=== PATIENT | female | born 1960 | race American Indian/Alaskan Native ===

== ENCOUNTER 2019-04-03 08:07 | Observation (INO) | payer MEDICAID ==
[2019-03-29 10:13] LABS: BUN/Creatinine Ratio 26; Blood Urea Nitrogen 18 mg/dL (7-17); Calcium 10.5 mg/dL (8.4-10.2); Hemolysis Index 13
--- NOTE | 2019-03-29 10:30 | Anesthesia Consultation ---
Anesthesia Consult and Med Hx Date of service: 03/29/19 - Airway Anesthetic Teeth Evaluation: Dentures ROM Head & Neck: Adequate Mental/Hyoid Distance: Adequate Mallampati Class: Class II Intubation Access Assessment: Probably Good - Pulmonary Exam CTA: Yes - Cardiac Exam Cardiac Exam: RRR - Pre-Operative Health Status ASA Pre-Surgery Classification: ASA2 Proposed Anesthetic Plan: General Nerve Block: TAP Block - Pulmonary Hx Smoking: No Hx Respiratory Symptoms: No Hx Sleep Apnea: No - Cardiovascular System Hx Hypertension: Yes (instructed to take amlodipine DOS) Hx Heart Attack/AMI: No Hx Percutaneous Transluminal Coronary Angioplasty (PTCA): No Hx Cardia Arrhythmia: No - Central Nervous System CVA: No Hx Psychiatric Problems: No - Gastrointestinal Hx Gastroesophageal Reflux Disease: Yes (poorly controlled) - Endocrine Hx Renal Disease: No Hx Liver Disease: No Hx Insulin Dependent Diabetes: No Hx Non-Insulin Dependent Diabetes: No Hx Thyroid Disease: No - Other Systems Hx Alcohol Use: Yes (Occas beer) Hx Obesity: No - Additional Comments Anesthesia Medical History Comments: No hx anesthetic complications. Consented for TAP block for postop analgesia.
[2019-03-29 10:45] LABS: Basophils % (Auto) 0.6 % (0.0-1.8); Eosinophils % (Auto) 0.9 % (0.0-4.3); Hematocrit 40.1 % (30.3-42.9); Hemoglobin 13.3 gm/dl (10.1-14.3); Lymphocytes # (Auto) 2.3 K/mm3 (1.2-5.4); Lymphocytes % (Auto) 45.1 % (13.4-35.0); Mean Corpuscular HGB Conc 33 % (30-34); Mean Corpuscular Volume 87 fl (79-97); Monocytes # (Auto) 0.4 K/mm3 (0.0-0.8); Monocytes % (Auto) 8.7 % (0.0-7.3); Platelet Count 350 K/mm3 (140-440); Red Blood Count 4.63 M/mm3 (3.65-5.03); Red Cell Distribution Width 14.5 % (13.2-15.2)
--- NOTE | 2019-04-03 06:59 | History and Physical Report ---
History of Present Illness Date of examination: 04/03/19 Date of admission: 04/03/2019 Chief complaint: DUB History of present illness: 58-year-old with a history of dysfunctional uterine bleeding and multiple leiomyomas. The patient reports significant pain and discomfort with her menses and also reports that her menses is heavy and she reports passage of clots. Pelvic ultrasound demonstrated an enlarged fibroid uterus with the largest leiomyoma measuring 5.8 cm and the total length of the uterus 12.4 cm. Various treatments options have been discussed with the patient which she declines and has elected to proceed with definitive surgical management. Past History Past Medical History: hypertension Past Surgical History: no surgical history [employer] History: fibroids Social history: single, smoking - Obstetrical History : 6 Para: 4 Hx # Term Pregnancies: 4 Number of Pregnancies: 0 Spontaneous Abortions: 0 Induced : 2 Number of Living Children: 4 Medications and Allergies Allergies Allergy/AdvReac Type Severity Reaction Status Date / Time No Known Allergies Allergy Unverified 03/27/19 16:08 Home Medications Medication Instructions Recorded Confirmed Last Taken Type amLODIPine [Norvasc] 5 mg PO DAILY 08/04/13 06/17/16 06/17/16 History Aspirin [Aspirin TAB] 325 mg PO QDAY 06/17/16 06/17/16 06/17/16 History Famotidine [Pepcid] 20 mg PO BID 06/17/16 06/17/16 06/17/16 History Losartan [Cozaar] 60 mg PO QDAY 06/17/16 06/17/16 06/17/16 History Active Meds: Active Medications Celecoxib (Celebrex) 200 mg PO PREOP NR Stop: 04/03/19 23:59 Fentanyl (Sublimaze) 100 mcg IV ONCE PRN PRN Reason: sedation for nerve block Gabapentin (Neurontin) 300 mg PO PREOP NR Stop: 04/03/19 23:59 Lactated Ringer's (Lactated Ringers) 1,000 mls @ 100 mls/hr IV DIRECT TOM Midazolam HCl (Versed) 2 mg IV PREOP NR Stop: 04/03/19 23:59 Review of Systems All systems: negative Genitourinary: vaginal bleeding, pelvic pain - Vital Signs Vital signs: Vital Signs Temp Pulse Resp BP Pulse Ox 97.5 F L 66 18 120/84 98 03/29/19 09:20 03/29/19 09:20 03/29/19 09:20 03/29/19 09:20 03/29/19 09:20 Temp Pulse Resp BP Pulse Ox 97.5 F L 66 18 120/84 98 03/29/19 09:20 03/29/19 09:20 03/29/19 09:20 03/29/19 09:20 03/29/19 09:20 - Physical Exam Breasts: Positive: deferred Cardiovascular: Regular rate Lungs: Positive: Clear to auscultation Abdomen: Positive: normal appearance Results Result Diagrams: 03/29/19 09:30 03/29/19 09:30 All other labs normal. Assessment and Plan - Patient Problems (1) Leiomyoma Status: Acute Plan to address problem: Patient is scheduled for a robotic hysterectomy and bilateral salpingo- oophorectomy (2) Dysfunctional uterine bleeding Status: Acute (3) Personal history of dysmenorrhea Status: Acute
[~2019-04-03 08:07] MED LIST: ANCEF/STERILE WATER 2 GM/20 ML 2 GM/20 ML SYRINGE IV NR; LACTATED RINGERS 1,000 ML IV SCH; NEURONTIN PO NR; SUBLIMAZE IV PRN; VERSED IV NR
[2019-04-03] MEDS ORDERED: XYLOCAINE 1% 20 mL ONE (09:08)
[2019-04-03] MEDS ORDERED: MARCAINE-EPI 0.25%-1:200,000 INFILTRATI ONE (09:09)
[2019-04-03] MEDS ORDERED: ZEMURON IV ONE (10:03)
[2019-04-03] MEDS ORDERED: XYLOCAINE MPF 2% ONE (10:03)
[2019-04-03] MEDS ORDERED: SUBLIMAZE ONE (10:05)
[2019-04-03] MEDS ORDERED: DIPRIVAN 10 MG/ML IV ONE ×2 (10:05→12:38)
--- NOTE | 2019-04-03 10:37 | Anesthesia Day of Surgery ---
Anesthesia Day of Surgery - Day of Surgery Patient Examined: Yes Patient H&P Reviewed: Yes Patient is NPO: Yes
[2019-04-03] MEDS ORDERED: NEOSPORIN GU IR ONE ×2 (10:53→11:28)
[2019-04-03] MEDS ORDERED: ZOFRAN IV PRN (11:00)
[2019-04-03] MEDS ORDERED: NACL 0.9% IR ONE ×2 (11:28)
[2019-04-03] MEDS ORDERED: NARCAN 0.4 MG/1 ML IV PRN (12:27)
--- NOTE | 2019-04-03 12:27 | Operative Report ---
Operative Report Operative Report: Date of surgery: 04/03/2019 Preoperative diagnoses: Symptomatic uterine fibroids; dysfunctional uterine bleeding Postoperative diagnoses: Same as above Procedure: Robotic hysterectomy and bilateral salpingo-oophorectomy Surgeon: Verenice Fonseca M.D. Air Gun Operator: Neal Blackwood Anesthesia: Gen. endotracheal anesthesia Estimated blood loss: 30 mL Pathology: Uterus, cervix, bilateral tubes and ovaries, leiomyoma Indication: 58-year-old with a history of symptomatic uterine fibroids. The patient reported painful heavy menses every month and elected to undergo definitive surgical management. Procedure: The patient was taken to the operating room and given general endotracheal anesthesia without complication. She is prepped and draped in a normal sterile fashion. A bivalve speculum was placed in the patient's vagina and a single- tooth tenaculum placed on the anterior lip of the cervix. The uterus was sounded with the uterine sound. A Catch[employer]! uterine manipulator was placed in the bivalve speculum was then removed. Attention was then turned to the patient's abdomen where a 12 millimeter supra umbilical skin incision was then made. A Veress needle was placed and peritoneal entry was verified water-filled syringe. Insufflation of the peritoneal cavity was performed with CO2 gas. The 12 mm trocar was then placed under direct visualization. An additional 8 mm trocar was placed on the patient's left and right lateral side just opposite of the supraumbilical trocar. An additional 5 mm right lateral trocar was then placed as the accessory port. The Cristian Salinas device was used to close the fascia of the 12 mm incision. The patient was then placed in steep Trendelenburg. The da Niles robot was then engaged. A fenestrated forcep was placed in arm 2 and a vessel sealer was placed in arm 1. The surgeon then transferred to the surgical console. The infundibulopelvic ligament was then isolated on the right. The vessel sealer was used to coagulate the ligament which was then transected. The tube and ovary were transected from the supply. The round ligament was then coagulated and transected also. The vesicouterine peritoneum was then entered from the patient's right side. The uterine vessels were then coagulated with the vessel sealer. The vessels were then transected . Attention was then turned to the patient's left side where the infundibulopelvic ligament and mesosalpinx were again isolated coagulated and transected. The vesical p eritoneum was then entered from the left and joined in the midline. Peritoneum was reflected off of the lower uterine segment. Uterine vessels were then coagulated and then transected. The blood supply to the uterus was adequately contained, a posterior colpotomy was made. The V care ring was visualized. Posterior colpotomy was created with the monopolar scissors. The incision was continued circumferentially until anterior colpotomy was made. The cervix and uterus were amputated from the vaginal cuff. The uterus was then removed along with the tubes and ovaries bilaterally through the vagina and a warm laparotomy sponge was placed and maintain the pneumoperitoneum. The vaginal cuff was then closed in a running fashion with V lock suture. Irrigation of the pelvis was performed. Hemoblast was applied to the incision. The skin was then reapproximated with 4-0 Monocryl. The tissue was sent to pathology which included the cervix, uterus, tubes and ovaries. The patient was then successfully extubated. She was then taken to the recovery room in stable condition. All sponge laps and needle counts were correct x2.
[2019-04-03] MEDS ORDERED: TYLENOL PO PRN (12:28)
[2019-04-03] MEDS ORDERED: IBUPROFEN PO PRN (12:28)
[2019-04-03] MEDS ORDERED: AMBIEN PO PRN (12:28)
[2019-04-03] MEDS ORDERED: PERCOCET 5/325 PO PRN (12:28)
[2019-04-03] MEDS ORDERED: ROBINUL ONE (12:31)
[2019-04-03] MEDS ORDERED: ZOFRAN ONE (12:31)
[2019-04-03] MEDS ORDERED: TORADOL ONE (12:31)
[2019-04-03] MEDS ORDERED: BLOXIVERZ ONE (12:31)
[2019-04-03] MEDS ORDERED: MORPHINE PCA 30MG/30ML IV SCH (13:00)
[2019-04-03] MEDS ORDERED: DECADRON ONE (13:08)
[2019-04-03] MEDS ORDERED: DILAUDID ONE (13:19)
[2019-04-03] MEDS: DILAUDID IV PRN ×2 (13:24→13:36)
[2019-04-03] MEDS: TORADOL IV SCH ×2 (18:13→19:00)
[2019-04-03] MEDS: D5LR 1,000 ML IV SCH (18:13)
[2019-04-04] MEDS: TORADOL IV SCH ×2 (01:16→07:47)
[2019-04-04] MEDS: D5LR 1,000 ML IV SCH (01:20)
[2019-04-04 04:30] LABS: Hematocrit 35.8 % (30.3-42.9); Hemoglobin 11.7 gm/dl (10.1-14.3)
--- NOTE | 2019-04-04 08:05 | Progress Note ---
Assessment and Plan - Patient Problems (1) Leiomyoma Current Visit: No Status: Acute Plan to address problem: routine postop care (2) Dysfunctional uterine bleeding Current Visit: No Status: Acute (3) Personal history of dysmenorrhea Current Visit: No Status: Acute Subjective - Subjective Date of service: 04/04/19 Interval history: Patient states she has been out the bed. Had difficulty sleeping last night. Patient reports: appetite normal, voiding normally, pain well controlled Objective - Vital Signs Latest vital signs: Vital Signs Temp Pulse Pulse Resp BP BP Pulse Ox 04/04/19 05:21 18 04/04/19 04:52 98.2 F 66 18 119/69 98 04/04/19 04:20 18 04/04/19 02:05 18 04/04/19 00:26 98.3 F 78 18 122/72 92 04/04/19 00:00 18 04/03/19 22:15 18 04/03/19 20:25 98.9 F 86 20 130/75 96 04/03/19 19:30 78 18 04/03/19 15:49 98.8 F 74 18 139/74 99 04/03/19 14:39 97 04/03/19 14:30 98.6 F 77 16 135/83 97 04/03/19 13:40 97.4 F L 04/03/19 13:30 73 16 131/74 99 04/03/19 13:15 89 16 145/81 100 04/03/19 13:10 91 H 18 148/76 100 04/03/19 13:05 86 18 138/83 100 04/03/19 12:58 98.4 F 82 20 136/87 98 04/03/19 08:45 16 04/03/19 08:43 16 04/03/19 08:25 97.4 F L 61 16 134/76 100 04/03/19 08:20 97.4 F L 61 18 134/76 100 Intake and Output 04/03/19 04/04/19 04/04/19 22:59 06:59 14:59 Intake Total 400 1249.583 Output Total 350 1700 Balance 50 -450.417 Intake: IV 889.583 D5lr 1,000 ml @ 125 mls/ 889.583 hr IV DIRECT TOM Rx#: [id number] Oral 400 Intake, Free Water 360 Output: Urine 350 1700 Indwelling Catheter 350 1700 Other: Total, Intake Amount 400 Total, Output Amount 350 1100 Voiding Method Indwelling Catheter # Voids Indwelling Catheter 1 Weight 77.111 kg - Exam Abdomen: Present: other (ecchymoses of right port site)
--- NOTE | 2019-04-04 08:09 | Discharge Summary ---
Providers - Providers Date of Admission: 04/03/19 12:28 Date of discharge: 04/04/19 Attending physician: JAYMIE ENGLAND Primary care physician: NATALIO ADAME Hospitalization Reason for admission: other (leiomyomas and DUB) Procedure: other (Robotic hysterectomy and BSO) Incision: intact, other (ecchymoses) Discharge diagnosis: other (Leiomyoma) Hospital course: Patient was admitted the day of surgery and underwent a robotic hysterectomy and BSO. See op note. Postop unremarkable Condition at discharge: Good Disposition: DC-01 TO HOME OR SELFCARE - Discharge Diagnoses (1) Leiomyoma Status: Acute (2) Dysfunctional uterine bleeding Status: Acute (3) Personal history of dysmenorrhea Status: Acute Plan - Discharge Medications Prescriptions: Docusate Sodium [Colace] 100 mg PO BID PRN #60 capsule PRN Reason: Constipation Ibuprofen [Motrin] 800 mg PO Q8HR PRN #60 tablet PRN Reason: Pain, Mild (1-3) Oxycodone HCl/Acetaminophen [Percocet 7.5/325 mg] 1 each PO Q6HR PRN #30 tablet PRN Reason: Pain - Provider Discharge Summary Activity: no sex for 6 weeks, no heavy lifting 4 weeks, no strenuous exercise Diet: routine Instructions: routine Additional instructions: [] Smoking cessation referral if applicable(refer to patient education folder for contact #) [] Refer to [facility] Booklet Call your doctor immediately for: * Fever > 100.5 * Heavy vaginal bleeding ( >1 pad per hour) * Severe persistent headache * Shortness of breath * Reddened, hot, painful area to leg or breast * Drainage or odor from incision. * Keep incision clean and dry at all times and follow doctor's instructions regarding bathing/showering followup with in 4 weeks - Follow up plan
[2019-04-04] MEDS ORDERED: MYLICON PO PRN (08:30)
[2019-04-04 12:15] VITALS: BP 123/84
== END 2019-04-04 12:30 | disposition home or self-care (01) ==
LOC: OR 08:07 → OB 12:28
PROVIDERS: ADMIT Obstetrics & Gynecology; ATTEND Obstetrics & Gynecology
DX: D25.9 Leiomyoma of uterus, unspecified (principal); N93.8 Other specified abnormal uterine and vaginal bleeding; I10 Essential (primary) hypertension; F17.210 Nicotine dependence, cigarettes, uncomplicated; Z79.899 Other long term (current) drug therapy; Z87.42 Personal history of other diseases of the female genital tract
CPT/HCPCS: 36415; 58552; 64450; 80048; 81025; 84703; 85014; 85018; 85025; 86850; 86870; 86900; 86901; 88307; 96374; 96375; 96376; A4217; C1765; G0378; J0690; J1100; J1170; J1885; J2250; J2270; J2405; J2704; J2710; J3010; J7120; J7121; S2900

== ENCOUNTER 2020-01-11 14:14 | Emergency (ER) | payer SELFPAY ==
--- NOTE | 2020-01-11 14:51 | Event Note ---
ED Screening Note ED Screening Note: pt presents with left sided cp that radiates down the left arm states she also has left upper back pain states it has been a week states she feels slightly short of breath nausea no v/d no fever states she took a nitro and did not help no leg swelling no recent surgery no recent travel no hormone use PMHx HTN, HLD non smoker occ drinker This initial assessment/diagnostic orders/clinical plan/treatment(s) is/are subject to change based on patients health status, clinical progression and re-assessment by fellow clinical providers in the ED. Further treatment and workup at subsequent clinical providers discretion. Patient/guardian urged not to elope from the ED as their condition may be serious if not clinically assessed and managed. Initial orders include: CP protocol
[2020-01-11 15:38] LABS: Basophils % (Auto) 0.3 % (0.0-1.8); Eosinophils # (Auto) 0.1 K/mm3 (0.0-0.4); Eosinophils % (Auto) 0.9 % (0.0-4.3); Hematocrit 46.6 % (30.3-42.9); Hemoglobin 15.3 gm/dl (10.1-14.3); Lymphocytes # (Auto) 2.9 K/mm3 (1.2-5.4); Mean Corpuscular HGB Conc 33 % (30-34); Mean Corpuscular Volume 86 fl (79-97); Monocytes # (Auto) 0.6 K/mm3 (0.0-0.8); Monocytes % (Auto) 8.6 % (0.0-7.3); Platelet Count 405 K/mm3 (140-440); Red Blood Count 5.45 M/mm3 (3.65-5.03); Red Cell Distribution Width 14.6 % (13.2-15.2)
--- NOTE | 2020-01-11 15:48 | XRay Report ---
CHEST 2 VIEWS 1503 INDICATION / CLINICAL INFORMATION: CP COMPARISON: 06/17/2016 FINDINGS: SUPPORT DEVICES: None. HEART / MEDIASTINUM: No significant abnormality. LUNGS / PLEURA: No significant pulmonary or pleural abnormality. No pneumothorax. ADDITIONAL FINDINGS: No significant additional findings. IMPRESSION: No significant acute abnormality Signer Name: Nelson Zimmerman MD Signed: 01/11/2020 3:43 PM Workstation Name: [email or web address]
[2020-01-11 16:03] LABS: Alanine Aminotransferase 40 units/L (7-56); Albumin 5.2 g/dL (3.9-5); BUN/Creatinine Ratio 26; Blood Urea Nitrogen 23 mg/dL (7-17); Hemolysis Index 49
[2020-01-11 16:10] LABS: Calcium 11.8 mg/dL (8.4-10.2)
[2020-01-11] MEDS ORDERED: traMADol 50 MG TAB PO ONE (17:00)
[2020-01-11 17:57] VITALS: BP 154/100
--- NOTE | 2020-01-11 18:02 | Emergency Department Report ---
ED Chest Pain HPI - General Chief Complaint: Chest Pain Stated Complaint: CP Time Seen by Provider: 01/11/20 14:47 Source: patient Mode of arrival: Ambulatory Limitations: No Limitations - History of Present Illness Initial Comments: Patient is complaining of some central chest pain for approximately 2 weeks. Patient states is been it off and on for the past 2 weeks but is now constant. When a gathering and probing further the patient states that the pain is worse with movement however she states this is mostly when she is doing chores like sweeping. Patient states when she actually is at rest and moves her arms she has pain as well. She states is a generalized soreness but when she moves her arms is a sharp pain in the left chest. She denies cough congestion fevers or chills. She states she has some very mild shortness of breath but is not constant. Patient was recently noncompliant with her blood pressure medications until approximately 5 days ago when she was restarted on her medications. Severity scale (0 -10): 7 - Related Data Home Medications Medication Instructions Recorded Confirmed Last Taken amLODIPine 5 mg PO DAILY 08/04/13 06/17/16 06/17/16 Aspirin 325 mg PO QDAY 06/17/16 06/17/16 06/17/16 Famotidine [Pepcid] 20 mg PO BID 06/17/16 06/17/16 06/17/16 Losartan [Cozaar] 60 mg PO QDAY 06/17/16 06/17/16 06/17/16 Previous Rx's Medication Instructions Recorded Last Taken Type Docusate Sodium [Colace] 100 mg PO BID PRN #60 capsule 04/04/19 Unknown Rx Ibuprofen [Motrin] 800 mg PO Q8HR PRN #60 tablet 04/04/19 Unknown Rx Oxycodone HCl/Acetaminophen 1 each PO Q6HR PRN #30 tablet 04/04/19 Unknown Rx [Percocet 7.5/325 mg] Ibuprofen [Motrin 600 MG tab] 600 mg PO Q8H PRN #14 tablet 01/11/20 Unknown Rx methOCARBAMOL [Robaxin TAB] 500 mg PO Q6H PRN #14 tablet 01/11/20 Unknown Rx traMADoL [Ultram] 50 mg PO Q6HR PRN #12 tablet 01/11/20 Unknown Rx Allergies Allergy/AdvReac Type Severity Reaction Status Date / Time No Known Allergies Allergy Verified 01/11/20 17:09 Heart Score - HEART Score History: Slightly suspicious EKG: Non-specific Age: 45-65 Risk factors: 1-2 risk factors Troponin: < normal limit HEART Score: 3 ED Review of Systems ROS: Stated complaint: CP Other details as noted in HPI Comment: All other systems reviewed and negative ED Past Medical Hx - Past Medical History Previous Medical History?: Yes Hx Hypertension: Yes Hx GERD: Yes (takes Zantac only.) - Surgical History Past Surgical History?: Yes Additional Surgical History: tubaligaion - Social History Smoking Status: Never Smoker Substance Use Type: None - Medications Home Medications: Home Medications Medication Instructions Recorded Confirmed Last Taken Type amLODIPine 5 mg PO DAILY 08/04/13 06/17/16 06/17/16 History Aspirin 325 mg PO QDAY 06/17/16 06/17/16 06/17/16 History Famotidine [Pepcid] 20 mg PO BID 06/17/16 06/17/16 06/17/16 History Losartan [Cozaar] 60 mg PO QDAY 06/17/16 06/17/16 06/17/16 History Docusate Sodium [Colace] 100 mg PO BID PRN #60 capsule 04/04/19 Unknown Rx Ibuprofen [Motrin] 800 mg PO Q8HR PRN #60 tablet 04/04/19 Unknown Rx Oxycodone HCl/Acetaminophen 1 each PO Q6HR PRN #30 tablet 04/04/19 Unknown Rx [Percocet 7.5/325 mg] Ibuprofen [Motrin 600 MG tab] 600 mg PO Q8H PRN #14 tablet 01/11/20 Unknown Rx methOCARBAMOL [Robaxin TAB] 500 mg PO Q6H PRN #14 tablet 01/11/20 Unknown Rx traMADoL [Ultram] 50 mg PO Q6HR PRN #12 tablet 01/11/20 Unknown Rx ED Physical Exam - General Limitations: No Limitations General appearance: alert, in no apparent distress - Head Head exam: Present: atraumatic, normocephalic - Eye Eye exam: Present: normal appearance - ENT ENT exam: Present: mucous membranes moist - Neck Neck exam: Present: normal inspection - Respiratory Respiratory exam: Present: normal lung sounds bilaterally, chest wall tenderness. Absent: respiratory distress, wheezes, rales, rhonchi - Cardiovascular Cardiovascular Exam: Present: regular rate, normal rhythm, normal heart sounds. Absent: systolic murmur, diastolic murmur, rubs, gallop - GI/Abdominal GI/Abdominal exam: Present: soft, normal bowel sounds. Absent: distended, tenderness, guarding, rebound - Extremities Exam Extremities exam: Present: normal inspection - Back Exam Back exam: Present: normal inspection - Neurological Exam Neurological exam: Present: alert, oriented X3 - Psychiatric Psychiatric exam: Present: normal affect, normal mood - Skin Skin exam: Present: warm, dry, intact, normal color. Absent: rash ED Course Vital Signs 01/11/20 01/11/20 01/11/20 14:17 16:47 17:00 Temperature 97.8 F Pulse Rate 83 82 79 Respiratory 18 18 15 Rate Blood Pressure 173/102 170/99 Blood Pressure 170/99 [Right] O2 Sat by Pulse 98 98 100 Oximetry 01/11/20 01/11/20 01/11/20 17:15 17:30 17:45 Temperature Pulse Rate 75 80 74 Respiratory 10 L 14 15 Rate Blood Pressure 154/91 159/102 154/100 Blood Pressure [Right] O2 Sat by Pulse 97 100 Oximetry KENNY score - Kenny Score Age > 65: (0) No Aspirin use within the Past 7 Days: (0) No 3 or more CAD Risk Factors: (0) No 2 or more Angina events in past 24 hrs: (1) Yes Known CAD with more than 50% Stenosis: (0) No Elevated Cardiac Markers: (0) No ST Deviation Greater than 0.5mm: (0) No KENNY Score: 1 ED Medical Decision Making - Lab Data Result diagrams: 01/11/20 15:02 01/11/20 15:02 Lab Results 01/11/20 01/11/20 01/11/20 Range/Units 15:02 15:02 17:08 WBC 6.8 (4.5-11.0) K/mm3 RBC 5.45 H (3.65-5.03) M/mm3 Hgb 15.3 H (10.1-14.3) gm/dl Hct 46.6 H (30.3-42.9) % MCV 86 (79-97) fl MCH 28 (28-32) pg MCHC 33 (30-34) % RDW 14.6 (13.2-15.2) % Plt Count 405 (140-440) K/mm3 Lymph % (Auto) 42.0 H (13.4-35.0) % [place] % (Auto) 8.6 H (0.0-7.3) % Eos % (Auto) 0.9 (0.0-4.3) % Baso % (Auto) 0.3 (0.0-1.8) % Lymph # 2.9 (1.2-5.4) K/mm3 [place] # 0.6 (0.0-0.8) K/mm3 Eos # 0.1 (0.0-0.4) K/mm3 Baso # 0.0 (0.0-0.1) K/mm3 Seg Neutrophils % 48.2 (40.0-70.0) % Seg Neutrophils # 3.3 (1.8-7.7) K/mm3 Sodium 142 (137-145) mmol/L Potassium 3.9 (3.6-5.0) mmol/L Chloride 97.5 L (98-107) mmol/L Carbon Dioxide 26 (22-30) mmol/L Anion Gap 22 mmol/L BUN 23 H (7-17) mg/dL Creatinine 0.9 (0.7-1.2) mg/dL Estimated GFR > 60 ml/min BUN/Creatinine Ratio 26 % Glucose 101 H (65-100) mg/dL Calcium 11.8 H (8.4-10.2) mg/dL Total Bilirubin 0.40 (0.1-1.2) mg/dL AST 25 (5-40) units/L ALT 40 (7-56) units/L Alkaline Phosphatase 153 H (35-129) units/L Troponin T < 0.010 < 0.010 (0.00-0.029) ng/mL NT-Pro-B Natriuret Pep < 5 (0-900) pg/mL Total Protein 9.1 H (6.3-8.2) g/dL Albumin 5.2 H (3.9-5) g/dL Albumin/Globulin Ratio 1.3 % - EKG Data -: EKG Interpreted by Md - EKG Data 01/11/20 18:00 EKG shows sinus rhythm rate of 78. Whitney is normal intervals are normal. There is evidence of Q waves in V1 through V3 however there is no ST segment elevation or depressions. Time of interpretation is 1425 - Radiology Data Ordering Physician: KEY JOHNSON Date of Service: 01/11/20 Procedure(s): XR chest routine 2V Accession Number(s): [id number] cc: KEY JOHNSON Fluoro Time In Minutes: CHEST 2 VIEWS 1503 INDICATION / CLINICAL INFORMATION: CP COMPARISON: 06/17/2016 FINDINGS: SUPPORT DEVICES: None. HEART / MEDIASTINUM: No significant abnormality. LUNGS / PLEURA: No significant pulmonary or pleural abnormality. No pneumothorax. ADDITIONAL FINDINGS: No significant additional findings. IMPRESSION: No significant acute abnormality Signer Name: Nelson Zimmerman MD Signed: 01/11/2020 3:43 PM Workstation Name: [employer] - Medical Decision Making Patient is chest pain is very reproducible. Patient states she does not remember any particular incidences where she may have pulled a muscle but she is agrees that she thinks this may be musculoskeletal in nature. Patient has had 2- troponins are making acute SD unlikely. Patient will be discharged home with medications for symptomatic relief. Critical care attestation.: If time is entered above; I have spent that time in minutes in the direct care of this critically ill patient, excluding procedure time. ED Disposition Clinical Impression: Atypical chest pain, Chest wall pain Disposition: DC-01 TO HOME OR SELFCARE Is pt being admited?: No Does the pt Need Aspirin: No Condition: Stable Instructions: Chest Pain (ED), Musculoskeletal Pain (ED) Referrals: PRIMARY CARE, [Primary Care Provider] - 3-5 Days Time of Disposition: 18:03
== END 2020-01-11 18:11 | disposition home or self-care (01) ==
LOC: ED 14:14
DX: R07.89 Other chest pain (principal); I10 Essential (primary) hypertension; K21.9 Gastro-esophageal reflux disease without esophagitis; Z98.51 Tubal ligation status; Z79.899 Other long term (current) drug therapy
CPT/HCPCS: 36415; 71046; 80053; 83880; 84484; 85025; 93005; 93010